=== PATIENT | male | born 1975 | race Caucasian/White ===

== ENCOUNTER 2017-11-16 06:35 | Emergency (ER) | payer OTHER ==
[~2017-11-16] VITALS: Ht 180.3 cm; Wt 97.1 kg
[2017-11-16 06:37] VITALS: Ht 180.3 cm; Wt 97.1 kg
[2017-11-16 07:37] VITALS: BP 102/87
== END 2017-11-16 07:37 | disposition other institution (70) ==
LOC: ED 06:35
DX: S29.011A Strain of muscle and tendon of front wall of thorax, initial encounter (principal); V43.52XA Car driver injured in collision with other type car in traffic accident, initial encounter; Y93.I9 Activity, other involving external motion; Y92.89 Other specified places as the place of occurrence of the external cause; Y99.8 Other external cause status

== ENCOUNTER 2017-11-16 06:35 | Emergency (ER) | payer OTHER | END 2017-11-16 07:37 | disposition other institution (70) | LOC: ED 06:35 | DX: Z02.89 Encounter for other administrative examinations (principal) ==